=== PATIENT | male | born 1935 | race Two or more races ===

== ENCOUNTER 2021-04-13 13:36 | Inpatient (IN) | payer MEDICARE, OTHER ==
[~2021-04-13] VITALS: Ht 160 cm; Wt 74.8 kg
[~2021-04-13 13:36] MED LIST: GLYB1TAB2 PO; LOSA1TAB39 PO; SIMV-46 PO
--- NOTE | 2021-04-13 13:40 | NUR ---
The patient is BIBRA 40 from home c/o fever, chills and generalized weakness. Alert and oriented x1. Denies pain. In room air and denies SOB. Respiration regular and unlabored. 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 The patient attached to the monitor.
[2021-04-13] MEDS ORDERED: ACETAMINOPHEN 650 MG/SUPP.RECT RC ONE ×2 (14:24→14:30)
[2021-04-13] MEDS ORDERED: VANCOMYCIN 1 GM in IV D5W 250 ML IV ONE (14:30)
[2021-04-13] MEDS ORDERED: IV NS 0.9% 1,000 ML BAG IV ONE (14:30)
[2021-04-13] MEDS ORDERED: PIPERACILLIN /TAZOBACTAM 3.375 G in IV D5W 50 ML IV ONE (14:30)
[2021-04-13 14:44] LABS: BASOPHILS % (AUTO) 0.4 % (0.0-2.0); EOSINOPHILS % (AUTO) 0.2 % (0.0-6.0); HEMATOCRIT 30 % (39-51); HEMOGLOBIN 9.8 g/dL (13.5-17.5); LYMPHOCYTES # (AUTO) 0.3 K/uL (0.8-4.8); MEAN CORPUSCULAR HGB CONC 33 g/dl (31.0-36.0); MEAN CORPUSCULAR VOLUME 86 fL (80-96); MONOCYTES # (AUTO) 0.5 K/uL (0.1-1.30); MONOCYTES % (AUTO) 7.8 % (2.0-12.0); NEUTROPHILS # (AUTO) 5.6 K/uL (1.8-8.9); NEUTROPHILS % (AUTO) 86.6 % (43.0-81.0); PLATELET COUNT (AUTO) 304 K/uL (150-450); WHITE BLOOD COUNT (AUTO) 6.4 K/uL (4.3-11.0)
--- NOTE | 2021-04-13 14:47 | NUR ---
MOVE SHEET SUBMITTED AND CALLED FOR BED.
[2021-04-13] MEDS ORDERED: FERR325T28 PO (14:49)
[2021-04-13] MEDS ORDERED: ASPI-1420 PO (14:49)
[2021-04-13] MEDS ORDERED: LOSA100T31 PO (14:49)
[2021-04-13] MEDS ORDERED: OMEG1CAP PO (14:50)
[2021-04-13 15:13] LABS: CALCIUM, SERUM 11.8 mg/dL (8.5-10.1); CARBON DIOXIDE 27 mmol/L (21-32); CHLORIDE 97 mmol/L (98-107); CREATININE 1.2 mg/dL (0.6-1.3); GLUCOSE 181 mg/dL (74-106); SODIUM SERUM 133 mmol/L (136-145); UREA NITROGEN, BLOOD 29 mg/dL (7-18)
[2021-04-13 15:18] LABS: ALANINE AMINOTRANSFERASE 46 U/L (12-78); ALBUMIN 2.7 g/dL (3.4-5.0); ALKALINE PHOSPHATASE 102 U/L (46-116); ASPARTATE AMINOTRANSFERASE 38 U/L (15-37); BILIRUBIN,DIRECT 0.3 mg/dL (0.0-0.2); BILIRUBIN,TOTAL 0.7 mg/dL (0.2-1.0); TOTAL PROTEIN, SERUM 6.6 g/dL (6.4-8.2)
[2021-04-13] MEDS ORDERED: IV NS 0.9% 250 ML IV ONE (15:24)
[2021-04-13] MEDS ORDERED: IOHEXOL-300 100 ML VIAL IV ONE (15:24)
--- NOTE | 2021-04-13 15:30 | NUR ---
THE PATIENT IS TAKEN TO CT
--- NOTE | 2021-04-13 15:46 | NUR ---
THE PATIENT IS BACK FROM CT
[2021-04-13 15:55] LABS: BAND % (MANUAL) 8 % (0.0-5.0); LYMPHOCYTES % (MANUAL) 7 % (16-48); MONOCYTES % (MANUAL) 7 % (0-11.0); NEUTROPHILS % (MANUAL) 78 (42-76)
--- NOTE | 2021-04-13 16:16 | NUR ---
URINE COLLECTED AND SENT TO THE LAB
[2021-04-13 16:25] LABS: BILIRUBIN,URINE NEGATIVE (NEGATIVE); COLOR,URINE YELLOW (YELLOW); LEUKOCYTE ESTERASE ,URINE NEGATIVE (NEGATIVE); NITRITE, URINE NEGATIVE (NEGATIVE); PH,URINE 5.5 (5.0-8.0); PROTEIN,URINE NEGATIVE (NEGATIVE); UGLUCOSE NEGATIVE (NEGATIVE)
[2021-04-13] MEDS ORDERED: LORA2TAB95 PO (16:28)
[2021-04-13] MEDS ORDERED: TAMS-12 PO (16:28)
[2021-04-13 16:42] LABS: BACTERIA,URINE None seen /HPF (None Seen); RBC,URINE 0-2 /HPF (0-2); SQUAMOUS EPITHELIAL CELL,UR 0-2 /HPF (None Seen); WBC,URINE 0-2 /HPF (0-3)
--- NOTE | 2021-04-13 17:24 | NUR ---
[facility] CALLED MOTOR ANALYST PAGED.
[2021-04-13] MEDS ORDERED: MAGNESIUM HYDROXIDE 30 ML UDC PO PRN (18:30)
[2021-04-13] MEDS ORDERED: DEXTROSE 50%-WATER 50 ML DISP.SYRIN IV PRN (18:30)
[2021-04-13] MEDS ORDERED: MAG HYDROX/AL HYDROX/SIMETH 30 ML UDC PO PRN (18:30)
[2021-04-13] MEDS ORDERED: Z GUARD REMEDY 2 OZ OINT TP PRN (18:30)
[2021-04-13] MEDS ORDERED: ACETAMINOPHEN 325 MG TABLET PO PRN (18:30)
[2021-04-13] MEDS ORDERED: ONDANSETRON HCL/PF 4 MG/2 ML VIAL IVP PRN (18:30)
--- NOTE | 2021-04-13 19:30 | NUR ---
RECEVIED REPORT FOR MAU VINCENT IN BED RESTING, IN NO ACUTE DISTRESS, VSS, CONNCETED TO MONITOR.
--- NOTE | 2021-04-13 20:34 | NUR ---
NURSE WILL CALL BACK FOR REPORT
--- NOTE | 2021-04-13 21:03 | NUR ---
REPORT GIVEN TO SATISH POPE
--- NOTE | 2021-04-13 21:17 | NUR ---
PATIENT TRANSERRED PER ACLS PROTOCOL
--- NOTE | 2021-04-13 21:20 | NUR ---
ADMIT NOTE ADMITTED PATIENT FROM ER, TRANSFERRED TO ROOM 102 VIA STRETCHER. PATIENT IS ALERT ORIENTED X1-2 PERIODS OF FORGETFULNESS, TELUGU SPEAKING AND MINIMAL TURKMEN. ON ROOM AIR, O2 SAT 97%. RESPIRATIONS EVEN AND UNLABORED. NO SIGNS OF RESPIRATORY DISTRESS. DENIES ANY PAIN OR DISCOMFORT. SKIN ASSESSMENT DONE, NOTED WITH LEFT LEG SCABS. IV ACCESS ON RIGHT AND LEFT AC #18, PATENT AND INTACT. NO SIGNS OF INFILTRATION. ORIENTED PATIENT TO ROOM AND CALL LIGHT. PER MARGO RN, FAMILY MEMBER HAD TAKEN ALL THE BELONGINGS. PATIENT NOTED WITH 1 PAIR BLACK SOCKS ONLY. BED LOCKED AND IN LOWEST POSITION WITH SIDE RAILS UP X2. SAFETY MEASURES MAINTAINED. CALL LIGHT WITHIN REACH. ALL NEEDS ANTICIPATED.
[2021-04-13 21:30] VITALS: BP 105/56
[2021-04-13] MEDS: IV NS 0.9% 1,000 ML IV PRN (22:31)
[2021-04-13] MEDS: FOLIC ACID 1 MG TABLET PO SCH (22:31)
[2021-04-13] MEDS ORDERED: PIPERACILLIN /TAZOBACTAM 3.375 G VIAL IV ONE (22:32)
[2021-04-13] MEDS: ENOXAPARIN SODIUM 40 MG/0.4 ML DISP.SYRIN SQ SCH (22:42)
[2021-04-13] MEDS: ZOSYN IVPB 3.375 G in IV D5W 50ml IV SCH (22:47)
[2021-04-13] MEDS: BLOOD SUGAR DIAGNOSTIC 1 EACH STRIP IN SCH (23:12)
[2021-04-13] MEDS: INSULIN REGULAR, HUMAN 100 UNIT/ML 3 ML VIAL SQ PRN (23:13)
[2021-04-14 04:00] VITALS: BP 126/79
[2021-04-14] MEDS ORDERED: PIPERACILLIN /TAZOBACTAM 3.375 G VIAL IV ONE (04:23)
[2021-04-14] MEDS: ZOSYN IVPB 3.375 G in IV D5W 50ml IV SCH (04:27)
--- NOTE | 2021-04-14 07:17 | NUR ---
RN NOTE PATIENT IS ALERT ORIENTED X1-2 PERIODS OF FORGETFULNESS. ON ROOM AIR, O2 SAT 98%. RESPIRATIONS EVEN AND UNLABORED. NO SIGNS OF RESPIRATORY DISTRESS. DENIES ANY PAIN OR DISCOMFORT. IV ACCESS ON RIGHT AND LEFT AC #18, PATENT AND INTACT RUNNING IV NS @ 75ML/HR. NO SIGNS OF INFILTRATION. ALL DUE MEDS GIVEN ORDERED. BED LOCKED AND IN LOWEST POSITION WITH SIDE RAILS UP X2. SAFETY MEASURES MAINTAINED. CALL LIGHT WITHIN REACH. ENDORSED TO AM SHIFT.
[2021-04-14 07:19] LABS: PROSTATE SPECIFIC ANTIGEN SCR 2.45 ng/mL (0.00-4.00)
[2021-04-14] MEDS: BLOOD SUGAR DIAGNOSTIC 1 EACH STRIP IN SCH ×4 (07:30→22:00)
[2021-04-14] MEDS ORDERED: VANCOMYCIN 1 GM in IV D5W 250 ML IV SCH (09:00)
[2021-04-14] MEDS: FOLIC ACID 1 MG TABLET PO SCH (10:40)
[2021-04-14] MEDS: PANTOPRAZOLE 40 MG TABLET.DR PO SCH (10:40)
[2021-04-14] MEDS: PIPERACILLIN /TAZOBACTAM 3.375 G in IV D5W 100 ML IV SCH ×2 (12:27→20:00)
[2021-04-14 12:35] VITALS: BP 132/80
[2021-04-14] MEDS: INSULIN REGULAR, HUMAN 100 UNIT/ML 3 ML VIAL SQ PRN (12:56)
--- NOTE | 2021-04-14 14:26 | NUR ---
RN NOTES RECEIVED PATIENT ALERT ORIENTED X 2 CONFUSION NOTED, ON ROOM AIR, O2 SAT 96%. GIVEN ABT IV MEDICATION NO ADVERSE SIDE EFFECTSNOTED ATTHIS TIME. NO SOB NOTED AND NO RESP DISTRESS NOTED, RESPIRATIONS EVEN AND UNLABORED. DENIES ANY PAIN OR DISCOMFORT. IV ACCESS ON RIGHT AND LEFT AC #18, PATENT AND INTACT RUNNING IV NS @ 75ML/HR. NO SIGNS OF INFILTRATION. ALL DUE MEDS GIVEN PER MD ORDERS AND NO ASPIRATION NOTED, BED LOCKED AND IN LOWEST POSITION WITH SIDE RAILS UP X2. SAFETY MEASURES IN PLACE AND BED ALARM ON , CALL LIGHT WITHIN REACH.
[2021-04-14 16:06] VITALS: BP 82/67
--- NOTE | 2021-04-14 16:07 | NUR ---
RO STEPHENS NOTIFIED PT. SHIVERING SBP 80'S,TEMP 98.9,WILL GIVE NS BOLUS 500ML ORDERED.WILL CONTINUE TO MONITOR.
[2021-04-14] MEDS ORDERED: IV NS 0.9% 500 ML IV ONE (16:30)
--- NOTE | 2021-04-14 16:46 | NUR ---
RN NOTES FAMILY WISHES THAT PT BE TRANSFERRED TO [place] TO PASS AWAY IN [place] AND NOT IN , FAMILY TALK TO MYSELF AND DOCTOR TO TRY TO HELP HONOR THEIR WISHES, PT APPEARS TO HAVE CANCER THIS HAS NOT OFFICIALLY BEEN THE D/G AND THERE IS A MASS NOTED, WE ARE MONITORING PT AND THE B/P IS TRENDING TO LOW BLOOD PRESSURE AT THIS TIME, PT IS WEAK, HAS BEEN TREMBLING AND SHAKING GIVEN 2 WARM BLANKETS TO HELP EASE ANY CHILL AND TO BRING COMFORT, NO OTHER ADVERSE SIDE EFFECTS FROM ABT NOTED AT THIS TIME, MD ORDERS BEING CARRIED OUT, ATE 50% OF BREAKFAST ALL OF PANCAKES AND HALF OF SAUSAGE LINK, HALF OF ORANGE AND WATER, NO ASPIRATIONS NOTED , DID NOT EAT LUNCH JUST SLEPT AND RESTED ENCOURAGED TO USE URINAL TO AVOID GETTING UP AND DOWN FROM BED TO BATH ROOM WHILE IV IS RUNNING COMPLIANT WITH CARE AND USING URINAL ON OWN, VOID IS CLEAR YELLOW NORMAL NO ODOR NOTED AT THIS TIME, WILL CONTINUE TO MONITOR AND FAMILY NOTIFIED OF ANY CHANGES AT THIS TIME.
[2021-04-14 20:00] VITALS: BP 124/79
[2021-04-14] MEDS: IV NS 0.9% 1,000 ML IV PRN (22:57)
[2021-04-14] MEDS: ENOXAPARIN SODIUM 40 MG/0.4 ML DISP.SYRIN SQ SCH (22:59)
--- NOTE | 2021-04-15 02:08 | NUR ---
patient alert x1 m/s patient temp 98.7 has iv ns infusing at 75 hr use urinal no bm yet blood sugar 110 no insulin needed.
[2021-04-15 04:00] VITALS: BP 125/77
[2021-04-15] MEDS: PIPERACILLIN /TAZOBACTAM 3.375 G in IV D5W 100 ML IV SCH (04:02)
[2021-04-15 06:07] LABS: BASOPHILS % (AUTO) 0.5 % (0.0-2.0); EOSINOPHILS % (AUTO) 0.3 % (0.0-6.0); HEMATOCRIT 27 % (39-51); HEMOGLOBIN 9.3 g/dL (13.5-17.5); LYMPHOCYTES # (AUTO) 0.3 K/uL (0.8-4.8); LYMPHOCYTES % (AUTO) 4.6 % (20.0-44.0); MEAN CORPUSCULAR HGB CONC 34 g/dl (31.0-36.0); MEAN CORPUSCULAR VOLUME 85 fL (80-96); MONOCYTES # (AUTO) 0.6 K/uL (0.1-1.30); NEUTROPHILS # (AUTO) 4.9 K/uL (1.8-8.9); NEUTROPHILS % (AUTO) 84.6 % (43.0-81.0); PLATELET COUNT (AUTO) 259 K/uL (150-450); RED BLOOD CELL COUNT(AUTO) 3.21 MIL/uL (4.5-6.0); WHITE BLOOD COUNT (AUTO) 5.8 K/uL (4.3-11.0)
[2021-04-15] MEDS: BLOOD SUGAR DIAGNOSTIC 1 EACH STRIP IN SCH (06:22)
--- NOTE | 2021-04-15 06:23 | NUR ---
blood sugar 149 this am no coverage given
[2021-04-15 06:50] LABS: ALBUMIN 2.3 g/dL (3.4-5.0); BILIRUBIN,TOTAL 0.7 mg/dL (0.2-1.0); CALCIUM, SERUM 10.4 mg/dL (8.5-10.1); TOTAL PROTEIN, SERUM 5.8 g/dL (6.4-8.2)
[2021-04-15 07:04] LABS: THYROID STIMULATING HORMONE 1.557 uIU/mL (0.358-3.74)
[2021-04-15 07:07] LABS: AFP, TUMOR MARKER <0.9 ng/mL (0.0-8.3); IMMUNOGLOBULIN A, SERUM 46 mg/dL (61-437); IMMUNOGLOBULIN G, SERUM 463 mg/dL (603-1613); IMMUNOGLOBULIN M, SERUM 33 mg/dL (15-143)
[2021-04-15 07:20] LABS: POTASSIUM 2.9 mmol/L (3.5-5.1)
[2021-04-15] MEDS ORDERED: FERROUS SULFATE (325 MG) 325 MG/TAB TABLET PO SCH ×3 (09:00→17:00)
[2021-04-15] MEDS: FOLIC ACID 1 MG TABLET PO SCH (09:29)
[2021-04-15] MEDS: PANTOPRAZOLE 40 MG TABLET.DR PO SCH (09:29)
[2021-04-15 09:39] LABS: BAND % (MANUAL) 4 % (0.0-5.0); LYMPHOCYTES % (MANUAL) 4 % (16-48); MONOCYTES % (MANUAL) 5 % (0-11.0); MYELOCYTES % 1 % (0-0); NEUTROPHILS % (MANUAL) 86 (42-76)
--- NOTE | 2021-04-15 10:09 | NUR ---
patient calm family at bedside,restraint discontinued per family request,fall risk precaution observed.
[2021-04-15] MEDS: POTASSIUM CHLORIDE 20 MEQ TAB.PRT.SR PO SCH ×2 (10:18→11:17)
[2021-04-15] MEDS ORDERED: HYDR-4275 PO (11:19)
[2021-04-15] MEDS ORDERED: LORAZEPAM 1 MG TABLET PO PRN (11:30)
[2021-04-15] MEDS ORDERED: TAMSULOSIN 0.4 MG CAP.SR.24H PO SCH (11:30)
[2021-04-15] MEDS ORDERED: MORPHINE SULFATE INJ 4 MG/ML DISP.SYRIN IV PRN (11:30)
[2021-04-15] MEDS ORDERED: HYDROCODONE/APAP 5/325MG TABLET PO PRN (11:30)
[2021-04-15] MEDS ORDERED: HOME MED MISCELLANEOUS XX SCH (11:30)
--- NOTE | 2021-04-15 12:01 | NUR ---
FAMILY SIGNED AMA,PT. CHANGED MIND TO TAKE NORCO,MEDS WASTED.
--- NOTE | 2021-04-15 12:01 | NUR ---
Discharged home via wheelchair with family. Refuses medications.
[2021-04-15] MEDS ORDERED: SIMVASTATIN 20 MG TABLET PO SCH (22:00)
[2021-04-16 08:07] LABS: *SPE A/G RATIO 0.9 (0.7-1.7); *SPE ALBUMIN 2.3 g/dL (2.9-4.4); *SPE ALPHA-1-GLOBULIN 0.4 g/dL (0.0-0.4); *SPE ALPHA-2-GLOBULIN 0.9 g/dL (0.4-1.0); *SPE BETA GLOBULIN 0.7 g/dL (0.7-1.3); *SPE GLOBULIN, TOTAL 2.5 g/dL (2.2-3.9); *SPE M-SPIKE Not Observed g/dL (Not Observed); *SPEGAMMA GLOBULIN 0.4 g/dL (0.4-1.8)
[2021-04-16] MEDS ORDERED: ASPIRIN EC 81 MG TABLET.DR PO SCH (09:00)
[2021-04-16] MEDS ORDERED: LOSARTAN POTASSIUM 50 MG TABLET PO SCH (09:00)
== END 2021-04-15 12:17 | disposition left against medical advice (07) | DRG 871 ==
LOC: ER 13:59 → TELE1 19:59 → UNDODISIN 20:10 → MEDSG1 21:25
PROVIDERS: ADMIT Hospitalist; ATTEND Nurse Practitioner Acute Care
DX: A41.9 Sepsis, unspecified organism (principal); G93.41 Metabolic encephalopathy; E87.2 Acidosis; E87.1 Hypo-osmolality and hyponatremia; D68.9 Coagulation defect, unspecified; N13.30 Unspecified hydronephrosis; E44.0 Moderate protein-calorie malnutrition; E11.65 Type 2 diabetes mellitus with hyperglycemia; Z20.822 Contact with and (suspected) exposure to COVID-19; Z85.72 Personal history of non-Hodgkin lymphomas; I25.10 Atherosclerotic heart disease of native coronary artery without angina pectoris; I10 Essential (primary) hypertension; E78.00 Pure hypercholesterolemia, unspecified; Z98.890 Other specified postprocedural states; Z92.21 Personal history of antineoplastic chemotherapy; Z79.84 Long term (current) use of oral hypoglycemic drugs; Z79.82 Long term (current) use of aspirin; Z79.899 Other long term (current) drug therapy; E78.5 Hyperlipidemia, unspecified; E83.52 Hypercalcemia; E86.1 Hypovolemia; I70.0 Atherosclerosis of aorta; N40.0 Benign prostatic hyperplasia without lower urinary tract symptoms; R74.01 Elevation of levels of liver transaminase levels; I71.4 Abdominal aortic aneurysm, without rupture; D50.9 Iron deficiency anemia, unspecified; R59.0 Localized enlarged lymph nodes
CPT/HCPCS: 36415; 71045-TC; 71250-TC; 80048-TC; 80053-TC; 80076-TC; 81001; 82105; 82306; 82378; 82728-TC; 82784; 82962-TC; 83540-TC; 83605-TC; 83615-TC; 83970; 84153-TC; 84154-TC; 84155; 84165; 84443-TC; 84484-TC; 84702-TC; 85025-TC; 85610-TC; 85730-TC; 86334; 87040-TC; 87081-TC; 87086-TC; C9803; G0378; J1650; J1815; J2543; J3370; J7030; J7040; J7050; J7060; Q9967; U0003